=== PATIENT | female | born 1955 | race Caucasian/White ===

== ENCOUNTER 2022-10-18 10:55 | Outpatient (CLI) | payer MEDICARE, BC, SELFPAY | END 2022-10-18 10:56 | disposition home or self-care (01) | PROVIDERS: PCP Family Medicine; Visit Provider Family Medicine | DX: I10 Essential (primary) hypertension (principal); E78.5 Hyperlipidemia, unspecified; E89.0 Postprocedural hypothyroidism | CPT/HCPCS: 80048; 80061; 84443; 85025 ==

== ENCOUNTER 2023-03-02 12:25 | Outpatient (CLI) | payer MEDICARE, BC, SELFPAY ==
--- NOTE | 2023-03-02 13:00 | CRLHL7_ITS ---
For Patients: As a result of the Century Cures Act, medical imaging exams and procedure reports are released immediately into your electronic medical record. You may view this report before your referring provider. If you have questions, please contact your health care provider. Indication: Follow up renal lesion Technique: Postcontrast CT abdomen and pelvis. 149 cc Isovue 370 intravenous contrast. Please note that all CT scans at this facility use dose modulation, iterative reconstruction, and/or weight-based dosing when appropriate to reduce radiation dose to as low as reasonably achievable. Comparison: CT PE study 01/15/2023. Additional CT chest comparison 08/06/2018 Findings: There is a simple exophytic cyst arising from the posterior left kidney upper pole measuring 2.4 cm smaller 5 millimeter or less renal cysts are present elsewhere throughout the left kidney. Small right renal cysts are also noted measuring up to 9 millimeters. No solid renal mass or hydronephrosis. No renal stone or perinephric stranding. The ureters are within normal limits. Lung bases are clear. No free intraperitoneal air. Less than 1 cm simple cysts are present within the liver, unchanged. No suspicious hepatic mass. The gallbladder is absent. No biliary obstruction. The pancreas is normal. Normal spleen. Left adrenal gland is unremarkable. Thickening of the right adrenal gland is chronic and unchanged. No hiatal hernia. Atherosclerotic disease. No aneurysm. Sigmoid diverticulosis. No diverticulitis. No bowel obstruction. Appendix normal. Uterus and adnexa appear normal. No adenopathy. There is a small bubble of gas within the bladder. This is considered incidental. Degenerative disc disease and facet degeneration lower lumbar spine with grade 1 degenerative spondylolisthesis of L4 on L5. Vacuum phenomenon noted at L4-5 and L5-S1. No compression fracture. Impression: Simple renal cysts bilaterally without suspicious renal lesion. Sigmoid diverticulosis. No diverticulitis. Chronic thickening of the right adrenal gland, unchanged from 08/04 seen. Please note that all CT scans at this facility use dose modulation, iterative reconstruction, and/or weight-based dosing when appropriate to reduce radiation dose to as low as reasonably achievable. Dictated by Ghulam Leslie MD @ 03/02/2023 3:27:18 PM (Electronically Signed)
[2023-03-02 13:18] LABS: Creatinine* 0.8 mg/dL (0.5-1.5); Estimated Glomerular Filt Rate 80 ml/min
== END 2023-03-02 12:26 | disposition home or self-care (01) ==
PROVIDERS: PCP Family Medicine; Visit Provider Family Medicine
DX: N28.9 Disorder of kidney and ureter, unspecified (principal); N28.1 Cyst of kidney, acquired; K57.30 Diverticulosis of large intestine without perforation or abscess without bleeding; E27.9 Disorder of adrenal gland, unspecified
CPT/HCPCS: 36415; 74177; 82565; Q9967

== ENCOUNTER 2024-01-16 10:58 | Outpatient (CLI) | payer MEDICARE, BC, SELFPAY | END 2024-01-16 10:59 | disposition home or self-care (01) | PROVIDERS: PCP Family Medicine; Visit Provider Family Medicine | DX: E78.5 Hyperlipidemia, unspecified (principal); I10 Essential (primary) hypertension; E89.0 Postprocedural hypothyroidism | CPT/HCPCS: 80048; 80061; 84443; 84460; 85025 ==

== ENCOUNTER 2024-04-25 12:29 | Outpatient (CLI) | payer MEDICARE, BC, SELFPAY | END 2024-04-25 12:30 | disposition home or self-care (01) | LOC: FBOREF 12:31 | PROVIDERS: PCP Family Medicine; Visit Provider Family Medicine | DX: R22.1 Localized swelling, mass and lump, neck (principal); M25.511 Pain in right shoulder | CPT/HCPCS: 84432; 86800 ==

== ENCOUNTER 2024-05-19 12:47 | Outpatient (CLI) | payer MEDICARE, BC, SELFPAY ==
--- NOTE | 2024-05-19 13:00 | CRLHL7_ITS ---
For Patients: As a result of the Century Cures Act, medical imaging exams and procedure reports are released immediately into your electronic medical record. You may view this report before your referring provider. If you have questions, please contact your health care provider. BILATERAL DIGITAL SCREENING MAMMOGRAM WITH COMPUTER-AIDED DETECTION AND TOMOSYNTHESIS CLINICAL HISTORY: Routine screening exam. COMPARISON: 01/24/21, 08/25/19, 04/18/16. TECHNIQUE: Digital mammogram in CC and MLO projections including computer-aided detection (CAD). Tomosynthesis was used in this interpretation. BREAST COMPOSITION: There are scattered areas of fibroglandular density. FINDINGS: RIGHT Breast: Focal asymmetric density within the lateral RIGHT breast 9 cm from the nipple. LEFT Breast: No suspicious findings. IMPRESSION: RIGHT breast asymmetry/mass. RECOMMENDATIONS: Additional mammographic views of the RIGHT breast including 3D spot compression CC/MLO. RIGHT breast ultrasound may also be required. BI-RADS Category 0: Incomplete: Need Additional Imaging Evaluation and/or Prior Mammograms for Comparison [facility] will contact the patient for follow-up. A lay language report of this examination will be provided to the patient. Dictated by Ghulam Leslie MD @ 05/20/2024 9:20:12 AM jj/Dictated by: Ghulam Leslie MD @ 05/20/2024 9:20:00 AM (Electronically Signed)
== END 2024-05-19 12:48 | disposition home or self-care (01) ==
PROVIDERS: PCP Family Medicine; Visit Provider Family Medicine
DX: Z12.31 Encounter for screening mammogram for malignant neoplasm of breast (principal); N63.10 Unspecified lump in the right breast, unspecified quadrant
CPT/HCPCS: 77063; 77067

== ENCOUNTER 2024-05-30 09:38 | Outpatient (CLI) | payer MEDICARE, BC, SELFPAY ==
--- NOTE | 2024-05-30 09:45 | CRLHL7_ITS ---
For Patients: As a result of the Cures Act, medical imaging exams and procedure reports are released immediately into your electronic medical record. You may view this report before your referring provider. If you have questions, please contact your health care provider. DIGITAL DIAGNOSTIC RIGHT MAMMOGRAM USING TOMOSYNTHESIS AND COMPUTER-AIDED DETECTION RIGHT BREAST ULTRASOUND CLINICAL HISTORY: RIGHT breast mass/asymmetry. COMPARISON: 05/19/2024. TECHNIQUE: Digital RIGHT mammogram in two projections. Tomosynthesis and CAD were used in this interpretation. Real-time ultrasound imaging of RIGHT breast with imaging documentation. BREAST COMPOSITION: There are scattered areas of fibroglandular density. FINDINGS: 3D spot compression CC/MLO RIGHT breast mammogram images submitted. Decreased conspicuity of previously noted asymmetric density. No suspicious mass or architectural distortion. Benign calcifications are present. Targeted RIGHT breast ultrasound performed 10 o`clock 9 cm from the nipple. Normal fibroglandular tissue is present. No suspicious mass. IMPRESSION: No evidence of malignancy. RECOMMENDATIONS: Annual BILATERAL screening mammography. Results and recommendations discussed with the patient. BI-RADS Category 2: Benign A lay language report of this examination will be provided to the patient. Dictated by Ghulam Leslie MD @ 05/30/2024 10:33:56 AM jj/Dictated by: Ghulam Leslie MD @ 05/30/2024 11:12:00 AM (Electronically Signed)
--- NOTE | 2024-05-30 10:15 | CRLHL7_ITS ---
For Patients: As a result of the Cures Act, medical imaging exams and procedure reports are released immediately into your electronic medical record. You may view this report before your referring provider. If you have questions, please contact your health care provider. PLEASE SEE DIGITAL DIAGNOSTIC RIGHT MAMMOGRAM PERFORMED SAME DAY CRL:taqueria meng/Dictated by: Ghulam Leslie MD @ 05/30/2024 10:33:00 AM (Electronically Signed)
== END 2024-05-30 09:39 | disposition home or self-care (01) ==
LOC: MAMMO 09:39
PROVIDERS: PCP Family Medicine; Visit Provider Family Medicine
DX: N63.10 Unspecified lump in the right breast, unspecified quadrant (principal); R92.8 Other abnormal and inconclusive findings on diagnostic imaging of breast
CPT/HCPCS: 76642; 77065; G0279

== ENCOUNTER 2024-11-24 15:58 | Outpatient (CLI) | payer MEDICARE, BC, SELFPAY | END 2024-11-24 15:59 | disposition home or self-care (01) | PROVIDERS: PCP Family Medicine; Visit Provider Family Medicine | DX: I10 Essential (primary) hypertension (principal); E89.0 Postprocedural hypothyroidism | CPT/HCPCS: 80048; 84439; 84443; 85025 ==

== ENCOUNTER 2025-01-26 13:18 | Outpatient (CLI) | payer MEDICARE, BC, SELFPAY | END 2025-01-26 13:19 | disposition home or self-care (01) | PROVIDERS: PCP Family Medicine; Visit Provider Family Medicine | DX: E89.0 Postprocedural hypothyroidism (principal); I10 Essential (primary) hypertension | CPT/HCPCS: 80048; 84439; 84443; 85025 ==

== ENCOUNTER 2025-04-22 11:28 | Outpatient (CLI) | payer MEDICARE, BC, SELFPAY | END 2025-04-22 11:29 | disposition home or self-care (01) | PROVIDERS: PCP Family Medicine; Visit Provider Family Medicine | DX: E78.2 Mixed hyperlipidemia (principal); E89.0 Postprocedural hypothyroidism; I10 Essential (primary) hypertension | CPT/HCPCS: 80048; 80061; 84439; 84443 ==

== ENCOUNTER 2025-07-30 11:42 | Outpatient (CLI) | payer MEDICARE, BC, SELFPAY | END 2025-07-30 11:43 | disposition home or self-care (01) | PROVIDERS: PCP Family Medicine; Visit Provider Family Medicine | DX: E89.0 Postprocedural hypothyroidism (principal) | CPT/HCPCS: 82043; 82570; 84439; 84443 ==